=== PATIENT | male | born 1945 | race African-American/Black ===

== ENCOUNTER 2020-06-06 13:46 | Emergency (ER) | payer MEDICARE, OTHER ==
[~2020-06-06] VITALS: Ht 177.8 cm; Wt 59.0 kg
--- NOTE | 2020-06-06 14:12 | Emergency Room Report ---
History of Present Illness General Chief Complaint: Abdominal Pain Source: Patient Present Illness HPI Disclaimer: Please note that this report is being documented using DRAGON technology. This can lead to erroneous entry secondary to incorrect interpretation by the dictating instrument. HPI: 74-year-old male recently diagnosed with gastric cancer not currently receiving treatment presents for evaluation abdominal pain. Awoke this morning with periumbilical abdominal pain that is been worsening throughout the day. He reports sharp and stabbing and nonradiating. No relieving factors. No exacerbating factors. Denies nausea, vomiting, diarrhea or fevers. He did have diarrhea last week. Denies dysuria, hematuria flank pain. Denies chest pain shortness of breath, cough or other symptoms at this time. 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 EOMI. Cardiovascular: RRR. S1 and S2 normal. No murmur appreciated Resp: Normal work of breathing. No cough, wheezing or crackles appreciated Abdomen: Abdomen is soft, nondistended. There is tenderness palpation around the periumbilical region without palpable mass. Negative Clifford's. Negative rebound. Skin: Intact. No abrasions, laceration or rash over the exposed skin MSK: Normal tone and bulk. Moving all extremities. No obvious deformity. Neuro: Awake and alert. Mentating appropriately. Procedures Critical Care Time Critical Care Time Total critical care time: Approximately 45 minutes Due to a high probability of clinically significant, life threatening deterioration, the patient required the highest level of preparedness to intervene emergently and I personally spent this critical care time directly and personally managing the patient. This critical care time included obtaining a history, examining the patient, pulse oximetry, ordering and reviewing studies, ordering treatments, evaluating response to treatment and updating management plan as needed, frequent reassessment and discussion with other providers as well as arranging for ultimate disposition. This critical to care time was performed to assess and manage the high probability of life-threatening deterioration that could result in multiorgan failure. This critical care time is separate from the separately billable procedures and treating other patients. Medical Decision Making Diagnostic Impression: Primary Impression: ACS (acute coronary syndrome) Additional Impressions: Nephrolithiasis Hydronephrosis PRABHA (acute kidney injury) ER Course This is a 74-year-old male recently diagnosed with gastric cancer presenting for evaluation of periumbilical abdominal pain beginning this morning. Differential includes was not limited to increased tumor burden, mesenteric ischemia, bowel obstruction, appendicitis, pancreatitis, gastritis among others. EKG demonstrates a right bundle branch block with T wave inversions. Patient's labs show an elevated troponin. His denying chest pain at this time. Given aspirin and Lovenox. Remainder of labs within normal limits. His abdominal pain may be an anginal equivalent. Renal function is abnormal with elevated BUN and creatinine consistent with acute kidney injury though there is no prior to compare to. CT scan of the abdomen performed without contrast shows a kidney stones and left-sided hydronephrosis. The patient was accepted to the service of Dr. Delong as panel physician today. 1750: Related by nursing staff that the patient is requesting to leave the emergency department at this time. He is refusing any admission stating that it is too loud in the hospital I does not like the commotion. An sign language interpreter was used for communication and family member was present at bedside. He is also asking for something to eat. I explained to him in no uncertain terms that I believe he is having a significant cardiac event as well as renal failure and kidney stone. I explained to him that these are potentially life-threatening conditions or can cause significant morbidity. He states that he believes he will get sicker staying in the hospital that is noisy rather than going home to rest and eat. He understands what I have explained to them and is of sound mind to make his own medical decisions. He was able to repeat back and verbalized understanding of his diagnoses and plan for treatment. With the use of an sign language interpreter I again explained the severity of his symptoms however he refused any further care at this hospital. I instructed him to go to the nearest hospital for readmission for NSTEMI, renal failure, kidney stone. Family member at bedside is in agreement with the patient's wishes. Patient signed AMA paperwork and left the emergency department. Admitting team notified Laboratory Tests Test 06/06/20 14:00 06/06/20 14:20 White Blood Count 11.0 K/UL (4.8-10.8) H Red Blood Count 4.71 M/UL (4.70-6.10) Hemoglobin 14.9 G/DL (14.2-18.0) Hematocrit 42.2 % (42.0-52.0) Mean Corpuscular Volume 90 FL (80-99) Mean Corpuscular Hemoglobin 31.6 PG (27.0-31.0) H Mean Corpuscular Hemoglobin Concent 35.2 G/DL (32.0-36.0) Red Cell Distribution Width 11.0 % (11.6-14.8) L Platelet Count 261 K/UL (150-450) Mean Platelet Volume 6.0 FL (6.5-10.1) L Neutrophils (%) (Auto) 83.4 % (45.0-75.0) H Lymphocytes (%) (Auto) 8.8 % (20.0-45.0) L Monocytes (%) (Auto) 6.5 % (1.0-10.0) Eosinophils (%) (Auto) 0.2 % (0.0-3.0) Basophils (%) (Auto) 1.2 % (0.0-2.0) Prothrombin Time 10.7 SEC (9.30-11.50) Prothrombin Time INR 1.0 (0.9-1.1) Activated Partial Thromboplast Time 27 SEC (23-33) Sodium Level 135 MMOL/L (136-145) L Potassium Level 3.6 MMOL/L (3.5-5.1) Chloride Level 101 MMOL/L (98-107) Carbon Dioxide Level 25 MMOL/L (21-32) Anion Gap 10 mmol/L (5-15) Blood Urea Nitrogen 26 mg/dL (7-18) H Creatinine 2.1 MG/DL (0.55-1.30) H Estimated Glomerular Filtration Rate 30.9 mL/min (>60) Glucose Level 224 MG/DL (74-106) H Calcium Level 8.9 MG/DL (8.5-10.1) Magnesium Level 1.8 MG/DL (1.8-2.4) Total Bilirubin 0.7 MG/DL (0.2-1.0) Aspartate Amino Transferase (AST) 26 U/L (15-37) Alanine Aminotransferase (ALT) 13 U/L (12-78) Alkaline Phosphatase 60 U/L (46-116) Troponin I 0.220 ng/mL (0.000-0.056) Total Protein 6.9 G/DL (6.4-8.2) Albumin 3.7 G/DL (3.4-5.0) Globulin 3.2 g/dL Albumin/Globulin Ratio 1.2 (1.0-2.7) Lipase 92 U/L (73-393) Urine Color Yellow Urine Appearance Clear Urine pH 5 (4.5-8.0) Urine Specific [place] 1.025 (1.005-1.035) Urine Protein 2+ (NEGATIVE) H Urine Glucose (UA) 2+ (NEGATIVE) H Urine Ketones 1+ (NEGATIVE) H Urine Blood 5+ (NEGATIVE) H Urine Nitrite Negative (NEGATIVE) Urine Bilirubin Negative (NEGATIVE) Urine Urobilinogen Normal MG/DL (0.0-1.0) Urine Leukocyte Esterase 1+ (NEGATIVE) H Urine RBC Tntc /HPF (0 - 0) H Urine WBC 0-2 /HPF (0 - 0) Urine Squamous Epithelial Cells Occasional /LPF Urine Bacteria Few /HPF (NONE) EKG Diagnostic Results Troponin ordered: Yes When was troponin ordered?: Jun 06, 2020 EKG Time: 14:09 Rate: normal Rhythm: NSR ST Segments: no acute changes Other Impression Sinus rhythm, normal axis, right bundle branch block pattern with inverted T waves precordial leads. Normal intervals. Rhythm Strip Diag. Results Rhythm Strip Time: 14:59 EP Interpretation: yes Rate: 70s Rhythm: NSR, no PVC's, no ectopy CT/MRI/US Diagnostic Results CT/MRI/US Diagnostic Results : Impression IMPRESSION: 1. 1.2 cm stone in the proximal left ureter. Moderate left hydroureteronephrosis. Left perinephric fluid. 2. Scarring in the inferior right kidney. No hydronephrosis or stone on the right. 3. Mild prominence of the bladder wall may be secondary to under distention. Please correlate with urinalysis if concerned for cystitis. 4. Small amount of fluid in the distal esophagus. Mild prominence of the wall of the esophagus could represent esophagitis. 5. Prominence of the wall of the stomach may be secondary to under distention versus gastritis. 6. Nonspecific nodular thickening of the left adrenal gland. 7. Small amount of free fluid in the posterior pelvis. Last Vital Signs Date Time Temp Pulse Resp B/P (MAP) Pulse Ox O2 Delivery O2 Flow Rate FiO2 06/06/20 13:41 97.7 70 19 178/92 (120) 99 Room Air Disposition: AGAINST MEDICAL ADVICE Condition: Serious Shay Richard MD Jun 06, 2020 14:12
[2020-06-06 14:14] LABS: BASOPHILS % (AUTO) 1.2 % (0.0-2.0); EOSINOPHILS % (AUTO) 0.2 % (0.0-3.0); HEMATOCRIT 42.2 % (42.0-52.0); HEMOGLOBIN 14.9 G/DL (14.2-18.0); LYMPHOCYTES % (AUTO) 8.8 % (20.0-45.0); MEAN CORPUSCULAR VOLUME 90 FL (80-99); MONOCYTES % (AUTO) 6.5 % (1.0-10.0); NEUTROPHILS % (AUTO) 83.4 % (45.0-75.0); PLATELET COUNT 261 K/UL (150-450); RED BLOOD COUNT 4.71 M/UL (4.70-6.10)
[2020-06-06] MEDS ORDERED: Omnipaque-300 100ml vial INJ PRN (14:15)
[2020-06-06] MEDS ORDERED: Morphine Sulfate 4mg/ml Inj (IV USE ONLY) IVP ONE (14:15)
[2020-06-06 14:25] VITALS: BP 163/90
[2020-06-06 14:28] LABS: CALCIUM 8.9 MG/DL (8.5-10.1); CREATININE 2.1 MG/DL (0.55-1.30); POTASSIUM 3.6 MMOL/L (3.5-5.1)
[2020-06-06 14:32] LABS: ALBUMIN 3.7 G/DL (3.4-5.0); ALBUMIN/GLOBULIN RATIO 1.2 (1.0-2.7); BILIRUBIN,TOTAL 0.7 MG/DL (0.2-1.0)
--- NOTE | 2020-06-06 14:40 | NUR ---
ED Nurse Note: Pt has gastric pain 8/ from today. Pt recently diagnosed with gastric cancer. Pt is alert and orientedx4, ambulatory. Pt has been seen by ERMD. Set up on monitor. Denies NVD. Labs drawn and sent.
[2020-06-06 14:55] LABS: APPEARANCE,URINE CLEAR; BILIRUBIN, URINE NEGATIVE (NEGATIVE); GLUCOSE, URINE (UA) 2+ (NEGATIVE); KETONES,URINE 1+ (NEGATIVE); LEUKOCYTE ESTERASE ,URINE 1+ (NEGATIVE); NITRITE,URINE NEGATIVE (NEGATIVE); PH,URINE 5 (4.5-8.0); PROTEIN,URINE 2+ (NEGATIVE); UROBILINOGEN,URINE NORMAL MG/DL (0.0-1.0)
[2020-06-06 15:01] LABS: COLOR,URINE YELLOW
[2020-06-06 16:50] VITALS: BP 149/87
--- NOTE | 2020-06-06 17:54 | NUR ---
AMA: SEE AMA FORM. Pt signed form. Pt states that he cannot stay in this environment and that he needs to go home. He says it is too noisy and that he feels he is only gonig to get more sick by staying here. Drop Wire Operator Monique [id number] [place] used with doctor and RN for patient. ERMD explained risks and states that if pt leaves, he should go to [facility]. ERMD told pt that he will most likely if he leaves. Pt verbalizes understanding. Pt is alert and orientedx4, ambulatory. IV removed without complications. Wristband removed.
--- NOTE | 2020-06-08 06:19 | Diagnostic Imaging Report ---
EXAM: CT Abdomen and Pelvis With Intravenous Contrast CLINICAL HISTORY: ABD PAIN TECHNIQUE: Axial computed tomography images of the abdomen and pelvis with intravenous contrast. CTDI is 4.40 mGy and DLP is 230.80 mGy-cm. One or more of the following dose reduction techniques were used: automated exposure control, adjustment of the mA and/or kV according to patient size, use of iterative reconstruction technique. COMPARISON: None FINDINGS: Lung bases: Mild bibasilar atelectasis. Heart: Mild cardiomegaly. Mediastinum: Small amount of fluid in the distal esophagus. Mild prominence of the wall of the esophagus could represent esophagitis. ABDOMEN: Liver: Small hypodensities in the liver are too small to definitively characterize. Gallbladder and bile ducts: Unremarkable. No calcified stones. No ductal dilation. Pancreas: Unremarkable. No mass. No ductal dilation. Spleen: Calcified granulomas in the spleen. Adrenals: Nonspecific nodular thickening of the left adrenal gland. Kidneys and ureters: 1.2 cm stone in the proximal left ureter. Moderate left hydroureteronephrosis. Left perinephric fluid. Scarring in the inferior right kidney. No hydronephrosis or stone on the right. Stomach and bowel: Prominence of the wall of the stomach may be secondary to under distention versus gastritis. Prominence of the wall of the rectum, descending colon and sigmoid colon may be secondary to under distention. No bowel obstruction. PELVIS: Appendix: Normal appendix. Bladder: Mild prominence of the bladder wall may be secondary to under distention. Please correlate with urinalysis if concerned for cystitis. Reproductive: Calcification in the prostate. ABDOMEN and PELVIS: Intraperitoneal space: Small amount of free fluid in the posterior pelvis. No free air. Bones/joints: Degenerative changes of the spine. No acute fracture. No dislocation. Soft tissues: Unremarkable. Vasculature: Atherosclerotic changes of the vasculature. No aortic aneurysm. Lymph nodes: Unremarkable. No enlarged lymph nodes. IMPRESSION: 1. 1.2 cm stone in the proximal left ureter. Moderate left hydroureteronephrosis. Left perinephric fluid. 2. Scarring in the inferior right kidney. No hydronephrosis or stone on the right. 3. Mild prominence of the bladder wall may be secondary to under distention. Please correlate with urinalysis if concerned for cystitis. 4. Small amount of fluid in the distal esophagus. Mild prominence of the wall of the esophagus could represent esophagitis. 5. Prominence of the wall of the stomach may be secondary to under distention versus gastritis. 6. Nonspecific nodular thickening of the left adrenal gland. 7. Small amount of free fluid in the posterior pelvis.
== END 2020-06-06 18:02 | disposition left against medical advice (07) ==
LOC: EDBD 13:46 → EMR 14:00 → CANBEDREQ 17:54 → EMR 18:02
DX: N13.2 Hydronephrosis with renal and ureteral calculous obstruction (principal); N17.9 Acute kidney failure, unspecified; I24.9 Acute ischemic heart disease, unspecified; Z87.891 Personal history of nicotine dependence; Z85.00 Personal history of malignant neoplasm of unspecified digestive organ
CPT/HCPCS: 36415; 74176; 80053; 81003; 83690; 83735; 84484; 85025; 85610; 85730; 96361; 96374; 99291; J2270; J7030